=== PATIENT | female | born 1970 | race Caucasian/White ===

== ENCOUNTER 2024-06-22 02:07 | Emergency (ER) | payer BC, SELFPAY ==
[2024-06-22 02:09] VITALS: BP 171/106
--- NOTE | 2024-06-22 02:23 | ED.GENMED ---
History of Present Illness
<ISHA Valle - Last Filed: 06/22/24 04:51>
General
Chief Complaint: Heart Rate Problem
Source: patient and significant other ()
Time Seen by Provider: 06/22/24 02:23
History of Present Illness
History of Present Illness:
A pleasant 54-year-old female with a past medical history of hypertension, hyperlipidemia, SVT, GERD presents to the emergency department for heart palpitations x 2 days. She states she initially noticed a 'fluttering sensation 'after drinking on
Saturday night. She states that it felt similar to previous episodes she had nearly 20 years ago, so she stopped drinking and reduced caffeine intake after Saturday's episode; however, episodes seem to have increased in frequency throughout Saturday.
Patient states that she believes it could be hormone related as previous episodes occurred during and is now currently perimenopausal. She incidentally admits headache which is unilateral and surrounds her right eye which started at the
same time Saturday. She admits to taking Tylenol with mild relief.She denies chest pain, shortness of breath, vision changes, nausea, vomiting, fever or chills.
Past History
<ISHA Valle - Last Filed: 06/22/24 04:51>
Past History
ED Past Medical History: Arrthythmia (SVT), GERD, HTN, Hypercholesterolemia and Hypothyroidism
ED Past Surgical History: Cholecystectomy, , Orthopedic and Tonsilectomy
Social History
Tobacco: Non-smoker
Alcohol: Occasional
Drug: None
Personal:
Living: with family
Family History
Family History: CAD
Review of Systems
<ISHA Valle - Last Filed: 06/22/24 04:51>
Review of Systems
Allergies reviewed?: Yes
All Other Systems: ROS reviewed and negative except as documented in HPI and ROS
Phy Exam
<Reese Irving [facility] - Last Filed: 06/22/24 04:51>
General Physical Exam
General Presentation: well appearing
General age: appears stated age
General Skin: warm
General Habitus: normal
General Mental: alert
General Hydration: appears well hydrated
ENT Exam
ENT Exam: neck supple
Eye Exam
Eye Exam: PERRL, EOMI and conjunctiva normal
Cardiovascular Exam
Cardiovascular Exam: regular rate/rhythm, no edema, no gallop, no murmur and normal peripheral pulses
Pulmonary Exam
Pulmonary Exam: lungs clear, no respiratory distress, no crackles and no cough
Gastrointestinal Exam
Gastrointestinal Exam: non distended
Neurological Exam
Neurological Exam: alert and oriented x3
Musculoskeletal Exam
Musculoskeletal Exam: full ROM
Skin Exam
Skin Exam: normal color, warm/dry and no rash
Psychiatric Exam
Psychiatric Exam: normal mood/affect
Course
<Reese Irving [facility] - Last Filed: 06/22/24 04:51>
Orders/Labs/Results
Orders:
Orders
06/22/24 02:14
Electrocardiogram (*1) Urgent
Reason for Study: Palpitations
EKG- Treatment ONCE
06/22/24 02:23
Electrocardiogram (*1) Urgent
Reason for Study: Palpitations
EKG- Treatment ONCE
06/22/24 02:49
Complete Blood Count/With Diff Urgent
Comprehensive Metabolic Panel Urgent
PTT Urgent
Prothrombin Time Urgent
TSH Urgent
06/22/24 03:25
Troponin I Urgent
Abnormal Lab Results
06/22/24
02:49
Hgb 11.9 L g/dL
(12.0-16.0)
Hct 35.0 L %
(37.0-47.0)
MCV 80.3 L fL
(81.0-99.0)
RDW 15.4 H %
(11.5-14.5)
Absolute Monos (auto) 0.7 H 10^3/uL
(0.1-0.6)
Chloride 108 H mmol/L
(98-107)
Glucose 112 H mg/dl
(70-99)
Total Bilirubin 0.1 L mg/dl
(0.2-1.3)
Total Protein 6.2 L g/dl
(6.3-8.2)
06/22/24 02:49
06/22/24 02:49
Vital Signs
Initial and Last Documented VS:
Initial Vital Signs
Pulse Resp BP Pulse Ox
80 18 171/106 99
06/22/24 02:09 06/22/24 02:09 06/22/24 02:09 06/22/24 02:09
Last Documented Vital Signs
Pulse Resp BP Pulse Ox
58 16 136/78 99
06/22/24 04:30 06/22/24 04:30 06/22/24 04:00 06/22/24 02:32
<Perez Quezada, DO - Last Filed: 06/22/24 03:26>
Orders/Labs/Results
Orders:
Orders
06/22/24 02:14
Electrocardiogram (*1) Urgent
Reason for Study: Palpitations
EKG- Treatment ONCE
06/22/24 02:23
Electrocardiogram (*1) Urgent
Reason for Study: Palpitations
EKG- Treatment ONCE
06/22/24 02:49
Complete Blood Count/With Diff Urgent
Comprehensive Metabolic Panel Urgent
PTT Urgent
Prothrombin Time Urgent
TSH Urgent
06/22/24 03:25
Troponin I Urgent
Abnormal Lab Results
06/22/24
02:49
Hgb 11.9 L g/dL
(12.0-16.0)
Hct 35.0 L %
(37.0-47.0)
MCV 80.3 L fL
(81.0-99.0)
RDW 15.4 H %
(11.5-14.5)
Absolute Monos (auto) 0.7 H 10^3/uL
(0.1-0.6)
Chloride 108 H mmol/L
(98-107)
Glucose 112 H mg/dl
(70-99)
Total Bilirubin 0.1 L mg/dl
(0.2-1.3)
Total Protein 6.2 L g/dl
(6.3-8.2)
06/22/24 02:49
06/22/24 02:49
Vital Signs
Initial and Last Documented VS:
Initial Vital Signs
Pulse Resp BP Pulse Ox
80 18 171/106 99
06/22/24 02:09 06/22/24 02:09 06/22/24 02:09 06/22/24 02:09
Last Documented Vital Signs
Pulse Resp BP Pulse Ox
58 16 136/78 99
06/22/24 04:30 06/22/24 04:30 06/22/24 04:00 06/22/24 02:32
<ISHA Valle - Last Filed: 06/22/24 04:51>
MDM/Problems Addressed
Differential Diagnosis Includes:
Paroxysmal supraventricular tachycardia, myocardial infarction, A-fib, nonsustained V. tach, nonsustained premature ventricular contractions.
<ISHA Valle - Last Filed: 06/22/24 04:51>
*Critical Care Note
Total Time (30-74mins, 75-104mins- exclusive of procedures): Not Applicable
ED Attending Note
<ISHA Valle - Last Filed: 06/22/24 04:51>
-
Portions of this chart may have been created with voice recognition software.� Occasional wrong word or��sound alike� substitutions may have occurred due to the inherent limitations of voice recognition software.
<Perez Quezada DO - Last Filed: 06/22/24 03:26>
ED Attending Note
Patient seen and examined by attending physician: Yes
I performed the substantive portion of visit, reviewed & personally made and approve the management plan that is documented in note by myself or MUNDO.: Yes
ED Attending Note:
54-year-old female presents to the emergency department with palpitations that been present intermittently for the last 2 days. She states she had some fluttering on Saturday night after consuming alcohol. She has a very remote history of SVT. She
follows with a knitter hand at [facility]. She states that the fluttering she felt on Saturday night was reminiscent of her previous SVT denies true chest pain or shortness of breath. Patient is perimenopausal and states that the last time
she felt similar symptoms, she was . She feels that her hormones might be playing a role. Denies any current symptoms. Patient denies current headache at this time. She did take Tylenol for mild headache that has been present. Denies
fever or chills. Patient was seen in conjunction with the PA student. I have reviewed and agree with the history and treatment plan presented. On my independent physical exam, patient is awake, alert, and oriented x3, no acute distress. Heart is
regular rate and rhythm. 60s on the monitor. Without murmurs rubs or gallops auscultated. Lungs are clear to auscultation bilaterally without wheezes rhonchi present. Abdomen is soft and nontender. Skin is warm and dry. Patient moves all 4
extremities.
Plan is lab work. Will continuously monitor her. Should her symptoms return we will address them. If not, and lab work is reasonable, patient to follow-up with knitter hand at [facility].
Discharge Plan
Departure
Patient Disposition: Home (Routine Discharge)
Date of Disposition: 06/22/24
Time of Disposition: 04:38
Patient with high blood pressure during this ER visit?: Yes
Condition: Fair
Discharge Problem:
Heart palpitations
Instructions: Palpitations (DC), BLOOD PRESSURE
Referrals:
Hollie Ramírez DO [Family Provider] -
Activity Restrictions/Additional Instructions:
Please follow-up with your knitter hand at [facility] for further testing.
It was a pleasure meeting you and taking part in your care. We hope for your continued healing and wellness.
Please read discharge instructions in their entirety. However, they are for general education and may not describe your exact diagnosis at discharge. Information on your ER visit and medical conditions were discussed with you along with appropriate
follow up information...
If indicated, please take your medications as instructed and indicated on discharge paperwork.
Please schedule a follow up appointment as directed. Call to schedule an appointment
Please return to the emergency department with ANY change in, persisting, or worsening of symptoms. If any of your symptoms do not improve, or persist, or become more severe within 6-12 hours, please return to the emergency department for further
care.
Please return to the emergency department if you develop a headache, neck pain/stiffness, fever greater than 100.4F, chest pain, shortness of breath, persistent nausea, vomiting, slurred speech, difficulty walking, numbness/tingling, weakness, signs
of infection or any other symptoms that are worrisome to you.
If you have any questions or concerns please do not hesitate to call the Hospital at or E-mail me directly at [email or web address]
Interventions
Interventions:
*Risk Screen - Suicide Last Done: 06/22/24 02:09
*General Assessment Last Done: 06/22/24 02:32
*Neglect/Abuse Screening Last Done: 06/22/24 02:32
ED- Fall Risk Assessment Last Done: 06/22/24 02:32
*ED COVID-19 Vaccine History Last Done: 06/22/24 02:13
ED- Cardiac Assessment Last Done: 06/22/24 02:32
ED- Pulmonary Assessment Last Done: 06/22/24 02:32
Discharge Date and Time
Print Language: SLOVENIAN
[2024-06-22 02:38] VITALS: BMI 29.0
[2024-06-22 02:59] LABS: % Basophils 0.8 % (0-2); % Immature Granulocytes 0.1 % (0-0.5); % Monocytes 8.7 % (1.7-9.3); % Neutrophils 54.4 % (42.2-75.2); Absolute Basophils 0.1 10^3/uL (0-0.2); Absolute Eosinophils 0.3 10^3/uL (0-0.7); Absolute Lymphocytes 2.4 10^3/uL (1.2-3.4); Absolute Monocytes 0.7 10^3/uL (0.1-0.6); Absolute Neutrophils 4.1 10^3/uL (1.4-6.5); Hemoglobin 11.9 g/dL (12.0-16.0); Mean Corpuscular Hgb 27.3 pg (27.0-31.0); Mean Corpuscular Volume 80.3 fL (81.0-99.0); Mean Platelet Volume 9.7 fL (7.4-10.4); Nucleated Red Blood Cells % 0 %; Platelet Count 263 10^3/uL (130-400); Red Blood Cell Count 4.36 10^6/uL (4.20-5.40); Red Cell Dist. Width 15.4 % (11.5-14.5); White Blood Cell Count 7.5 10^3/uL (4.8-10.8)
[2024-06-22 03:00] VITALS: BP 144/76
[2024-06-22 03:12] LABS: INR 0.93; PT 12.8 Sec (11.4-14.6)
[2024-06-22 03:13] LABS: APTT 30.8 Sec (23.4-35.0)
[2024-06-22 03:15] LABS: ALT (SGPT) 18 U/L (0-35); AST (SGOT) 22 U/L (14-36); Albumin 3.8 g/dl (3.5-5.0); Alkaline Phosphatase 56 U/L (38-126); Blood Urea Nitrogen 14 mg/dl (7-17); Calcium 9.2 mg/dl (8.4-10.2); Carbon Dioxide 24 mmol/L (22-30); Chloride 108 mmol/L (98-107); Estimated Creatinine Clearance 86 ml/min; Glucose 112 mg/dl (70-99); Sodium 141 mmol/L (135-145); Total Bilirubin 0.1 mg/dl (0.2-1.3); Total Protein 6.2 g/dl (6.3-8.2); eGFR > 60.00
[2024-06-22 03:57] LABS: Troponin I < 0.012 ng/ml
[2024-06-22 04:00] VITALS: BP 136/78
[2024-06-22 04:55] VITALS: BP 140/75
== END 2024-06-22 04:55 | disposition home or self-care (01) ==
LOC: EMR 02:07
PROVIDERS: EMERGENCY PHYSICIAN Student in an Organized Health Care Education/Training Program; FAMILY PHYSICIAN Internal Medicine
DX: R00.2 Palpitations (principal); I10 Essential (primary) hypertension; E78.00 Pure hypercholesterolemia, unspecified; K21.9 Gastro-esophageal reflux disease without esophagitis; E03.9 Hypothyroidism, unspecified; Z90.49 Acquired absence of other specified parts of digestive tract
CPT/HCPCS: 99284; 80053; 84443; 84484; 85025; 85610; 85730; 93005